=== PATIENT | female | born 1950 | race Caucasian/White ===

== ENCOUNTER → 2019-08-10 15:10 | Outpatient (BNVA) | payer MEDICARE, MEDICAID, SELFPAY | PROVIDERS: PCP Family Medicine; Visit Provider Nurse Practitioner Family | DX: J18.9 Pneumonia, unspecified organism (principal); R05 Cough; I70.0 Atherosclerosis of aorta; Q25.46 Tortuous aortic arch | CPT/HCPCS: 71046; 85025 ==

== ENCOUNTER → 2019-11-22 13:23 | Outpatient (BNVA) | payer MEDICARE, MEDICAID, SELFPAY | PROVIDERS: PCP Nurse Practitioner Family; Visit Provider Nurse Practitioner Family | DX: N39.0 Urinary tract infection, site not specified (principal) | CPT/HCPCS: 80053; 81003; 87077; 87086; 87186 ==

== ENCOUNTER → 2019-11-29 14:36 | Outpatient (BNVA) | payer MEDICARE, MEDICAID, SELFPAY | PROVIDERS: PCP Nurse Practitioner Family; Visit Provider Nurse Practitioner Family | DX: N39.0 Urinary tract infection, site not specified (principal) | CPT/HCPCS: 81003 ==

== ENCOUNTER → 2019-12-06 13:07 | Outpatient (BNVA) | payer MEDICARE, MEDICAID, SELFPAY | PROVIDERS: PCP Nurse Practitioner Family; Visit Provider Nurse Practitioner Family | DX: M79.641 Pain in right hand (principal); M79.642 Pain in left hand; M85.842 Other specified disorders of bone density and structure, left hand; M85.841 Other specified disorders of bone density and structure, right hand; E55.9 Vitamin D deficiency, unspecified; R94.6 Abnormal results of thyroid function studies; D56.5 Hemoglobin E-beta thalassemia; E11.9 Type 2 diabetes mellitus without complications; N39.0 Urinary tract infection, site not specified; E78.2 Mixed hyperlipidemia | CPT/HCPCS: 73130; 80053; 80061; 81003; 82306; 83036; 84443; 84550; 85025; 85651; 86140; 86431 ==

== ENCOUNTER → 2019-12-26 07:35 | Outpatient (BNVA) | payer MEDICARE, MEDICAID, SELFPAY | PROVIDERS: PCP Nurse Practitioner Family; Visit Provider Psychiatry & Neurology Psychiatry | DX: F33.42 Major depressive disorder, recurrent, in full remission (principal); G24.01 Drug induced subacute dyskinesia | CPT/HCPCS: 99213 ==

== ENCOUNTER → 2020-04-17 15:39 | Outpatient (BNVA) | payer MEDICARE, MEDICAID, SELFPAY | PROVIDERS: PCP Nurse Practitioner Family; Visit Provider Nurse Practitioner Family | DX: I10 Essential (primary) hypertension (principal); E11.9 Type 2 diabetes mellitus without complications; M10.9 Gout, unspecified; E55.9 Vitamin D deficiency, unspecified | CPT/HCPCS: 80053; 80061; 82306; 82607; 83036; 83735; 84550; 85025 ==

== ENCOUNTER → 2020-05-24 13:16 | Outpatient (BNVA) | payer MEDICARE, MEDICAID, SELFPAY | PROVIDERS: PCP Nurse Practitioner Family; Visit Provider Internal Medicine Nephrology | DX: N18.30 Chronic kidney disease, stage 3 unspecified (principal) | CPT/HCPCS: 80053; 80069; 81003; 82043; 87077; 87086; 87184 ==

== ENCOUNTER → 2020-06-20 08:16 | Outpatient (BNVA) | payer MEDICARE, MEDICAID, SELFPAY | PROVIDERS: PCP Nurse Practitioner Family; Visit Provider Psychiatry & Neurology Psychiatry | DX: F33.42 Major depressive disorder, recurrent, in full remission (principal); G24.01 Drug induced subacute dyskinesia | CPT/HCPCS: 99213 ==

== ENCOUNTER → 2020-12-18 07:37 | Outpatient (BNVA) | payer MEDICARE, MEDICAID, SELFPAY | PROVIDERS: PCP Nurse Practitioner Family; Visit Provider Psychiatry & Neurology Psychiatry | DX: F33.42 Major depressive disorder, recurrent, in full remission (principal); G24.01 Drug induced subacute dyskinesia | CPT/HCPCS: 99213 ==

== ENCOUNTER → 2021-04-08 17:46 | Outpatient (BNVA) | payer MEDICARE, MEDICAID, SELFPAY | PROVIDERS: PCP Nurse Practitioner Family; Visit Provider Nurse Practitioner Family | DX: E11.9 Type 2 diabetes mellitus without complications (principal); E55.9 Vitamin D deficiency, unspecified; I10 Essential (primary) hypertension; M79.641 Pain in right hand; M79.642 Pain in left hand; M10.9 Gout, unspecified; J44.9 Chronic obstructive pulmonary disease, unspecified | CPT/HCPCS: 80053; 80061; 82043; 82306; 82607; 83036; 84443; 84550; 85025; 85651; 86038; 86140; 86200; 86431 ==

== ENCOUNTER → 2021-05-28 07:34 | Outpatient (BNVA) | payer MEDICARE, MEDICAID, SELFPAY | PROVIDERS: PCP Nurse Practitioner Family; Visit Provider Psychiatry & Neurology Psychiatry | DX: F33.42 Major depressive disorder, recurrent, in full remission (principal); G24.01 Drug induced subacute dyskinesia | CPT/HCPCS: 99213 ==

== ENCOUNTER → 2021-06-24 13:17 | Outpatient (BNVA) | payer MEDICARE, MEDICAID, SELFPAY | PROVIDERS: PCP Nurse Practitioner Family; Visit Provider Nurse Practitioner Family | DX: E11.9 Type 2 diabetes mellitus without complications (principal); E55.9 Vitamin D deficiency, unspecified; M10.9 Gout, unspecified; Z23 Encounter for immunization | CPT/HCPCS: 80053; 80061; 82306; 83036; 84443; 84550; 85025 ==

== ENCOUNTER → 2021-10-28 11:47 | Outpatient (BNVA) | payer MEDICARE, MEDICAID, SELFPAY | PROVIDERS: PCP Nurse Practitioner Family; Visit Provider Nurse Practitioner Family | DX: M25.562 Pain in left knee (principal); M17.12 Unilateral primary osteoarthritis, left knee; E11.9 Type 2 diabetes mellitus without complications; E55.9 Vitamin D deficiency, unspecified; G25.81 Restless legs syndrome; M10.9 Gout, unspecified | CPT/HCPCS: 73562; 80053; 80061; 82306; 82607; 83036; 83735; 84443; 84550; 85025 ==

== ENCOUNTER → 2021-11-07 14:14 | Outpatient (BNVA) | payer MEDICARE, MEDICAID, SELFPAY | PROVIDERS: PCP Nurse Practitioner Family; Visit Provider Nurse Practitioner Family | DX: M25.561 Pain in right knee (principal) | CPT/HCPCS: 73562 ==

== ENCOUNTER → 2021-12-01 11:41 | Outpatient (BNVA) | payer MEDICARE, MEDICAID, SELFPAY | PROVIDERS: PCP Nurse Practitioner Family; Visit Provider Nurse Practitioner Family | DX: M10.9 Gout, unspecified (principal) | CPT/HCPCS: 80048; 84550 ==

== ENCOUNTER → 2021-12-10 09:45 | Outpatient (BNVA) | payer MEDICARE, MEDICAID, SELFPAY | PROVIDERS: PCP Nurse Practitioner Family; Referring Provider Nurse Practitioner Family; Visit Provider Specialist | DX: M17.11 Unilateral primary osteoarthritis, right knee (principal); M17.12 Unilateral primary osteoarthritis, left knee; E66.9 Obesity, unspecified; M25.562 Pain in left knee; M25.561 Pain in right knee | CPT/HCPCS: 73560; 73565; 99204; J7326 ==

== ENCOUNTER → 2022-02-05 14:47 | Outpatient (BNVA) | payer MEDICARE, MEDICAID, SELFPAY | PROVIDERS: PCP Nurse Practitioner Family; Visit Provider Nurse Practitioner Family | DX: M25.572 Pain in left ankle and joints of left foot (principal); M25.472 Effusion, left ankle | CPT/HCPCS: 73610 ==

== ENCOUNTER → 2022-03-26 11:52 | Outpatient (BNVA) | payer MEDICARE, MEDICAID, SELFPAY | PROVIDERS: PCP Nurse Practitioner Family; Visit Provider Nurse Practitioner Family | DX: E11.9 Type 2 diabetes mellitus without complications (principal); E55.9 Vitamin D deficiency, unspecified | CPT/HCPCS: 80053; 80061; 82306; 83036; 84443; 85025 ==

== ENCOUNTER → 2022-05-15 14:42 | Outpatient (BNVA) | payer MEDICARE, MEDICAID, SELFPAY | PROVIDERS: PCP Nurse Practitioner Family; Visit Provider Nurse Practitioner Family | DX: D72.819 Decreased white blood cell count, unspecified (principal) | CPT/HCPCS: 85025 ==

== ENCOUNTER → 2022-07-10 11:07 | Outpatient (BNVA) | payer MEDICARE, MEDICAID, SELFPAY | PROVIDERS: PCP Nurse Practitioner Family; Visit Provider Student in an Organized Health Care Education/Training Program | DX: Z01.818 Encounter for other preprocedural examination (principal) | CPT/HCPCS: 80048 ==

== ENCOUNTER → 2022-10-30 11:42 | Outpatient (BNVA) | payer MEDICARE, MEDICAID, SELFPAY | PROVIDERS: PCP Nurse Practitioner Family; Visit Provider Nurse Practitioner Family | DX: I10 Essential (primary) hypertension (principal); E11.9 Type 2 diabetes mellitus without complications; E55.9 Vitamin D deficiency, unspecified | CPT/HCPCS: 80053; 80061; 82306; 83036; 84443; 85025 ==

== ENCOUNTER 2022-12-31 19:18 | Emergency (ER) | payer MEDICARE, MEDICAID, SELFPAY ==
[2022-12-31 19:31] VITALS: BP 159/84; PULSE 109; RESP 18; TEMP 38.5; O2SAT 94; BMI 37.4
[2022-12-31] MEDS: acetaminophen 500 mg Tablet 1000 MG PO (20:26)
[2022-12-31 20:27] VITALS: BP 152/95; PULSE 99; O2SAT 92
--- NOTE | 2022-12-31 20:29 | ED_ITS ---
HPI - Headache General: Chief Complaint: Headache Stated Complaint: Head Pain, Dizzy Time Seen by Provider: 12/31/22 19:24 History of Present Illness: Patient presents to the ER with complaints of headache. Also fever. Patient says she may have a UTI because she has been noticing bubbles in her urine. Patient is under a lot more stress than normal. They stated may have put her little dog down. All these have been going on for about the last 2 months. Nothing seems to make these better or worse. Patient does have a temperature of 101.3 upon arrival and has not taken anything for fever. Review of Systems General: Reports: 10 or more systems reviewed and unremarkable except in HPI and below PFSH ED PFSH: Medical History Bilateral hearing loss Bilateral primary osteoarthritis of knee Chronic kidney disease, stage 3 (moderate) COPD (chronic obstructive pulmonary disease) Dyskinesia, tardive Encounter for counseling for care management of patient with chronic conditions and complex health needs using nurse-based model Enrolled in chronic care management Essential (primary) hypertension Major depressive disorder, recurrent, in full remission Mixed hyperlipidemia Seasonal allergies Steatohepatitis Type 2 diabetes mellitus without complications Vitamin D deficiency Surgical History History of tonsillectomy and adenoidectomy (~1955) Hx of external ear surgery (~1967) Family History Father CAD (coronary artery disease) Mother Cancer Psychiatric illness Bipolar Disorder Social History Smoking and tobacco status: never smoked Alcohol intake: never Substance/Drug Use: never Lives independently: Yes Household members: none Housing: Apartment Marital status: Single Current occupational status: retired Current gender identity: Female Physical Exam Const: COMMON NORMALS: no acute distress, average body habitus, patient oriented x3, no limitations, healthy appearing, alert and well nourished HENMT: COMMON NORMALS: normocephalic, atraumatic, hearing grossly normal bilaterally, external ears normal, Normal external nose present and moist oral mucous membranes HEAD & SCALP: normocephalic and atraumatic NOSE: Normal external nose present EXTERNAL EAR: Yes external ears normal Eye: COMMON NORMALS: Equal, round and reactive pupils present, EOMs intact bilaterally, conjunctivae normal and no scleral icterus CONJUNCTIVA: Yes conjunctivae normal PUPIL: Yes Equal, round and reactive pupils present Neck/C-Spine: COMMON NORMALS: full ROM, no lymphadenopathy, supple, no meningeal signs, no JVD and Thyroid normal THYROID: Thyroid normal Chest: COMMONS NORMALS: normal inspection of the chest and normal palpation of entire chest wall Resp: COMMON NORMALS: normal respiratory effort, No retractions, No use of accessory muscles and clear to auscultation bilaterally AUSCULTATION: clear to auscultation bilaterally Cardio: COMMON NORMALS: no JVD, regular rate, regular rhythm, S1 normal heart sound present, S2 normal heart sound present, No gallops present (Cardio), No clicks present (Cardio), No murmurs present (Cardio) and No rub (Cardio) RATE: regular rate RHYTHM: regular rhythm HEART SOUNDS: S1 normal heart sound present and S2 normal heart sound present GI: COMMON NORMALS: Normal to inspection, nondistended, normoactive bowel sounds present, Soft to palpation, non-tender, No hepatosplenomegaly present and no masses PALPATION: Yes Soft to palpation and Yes No hepatosplenomegaly present : COMMON NORMALS: Yes no CVA tenderness BLADDER/KIDNEY EXAM: Yes no CVA tenderness Back/Pelvis: COMMON NORMALS: no CVA tenderness Neuro: COMMON NORMALS: patient oriented x3 SENSORIUM/ORIENTATION: Yes alert MENINGEAL SIGNS: Yes no meningeal signs Course Vital Signs: Vital signs: Vital Signs Temperature 101.3 F H 12/31/22 19:31 Pulse Rate 99 12/31/22 20:27 Respiratory Rate 18 12/31/22 19:31 Blood Pressure 152/95 12/31/22 20:27 Pulse Oximetry 92 12/31/22 20:27 Oxygen Delivery Me thod Room Air 12/31/22 20:27 MDM - Headache Medical Decision Making Patient was examined lab work was up patient has a urinary tract infection. This would explain the patient's fever and tachycardia. Patient's under a lot more stress than normal which would explain her headache. Patient will be given Macrobid here in ER as she says she cannot take Cipro and is allergic to sulfa. Patient be discharged with a Macrobid prescription to follow-up with her family practice doc on an as-needed basis. Patient is to take Tylenol as needed for fever. Differential Diagnosis Likely tension headache; Unlikely migraine, subarachnoid hemorrhage, headache, meningitis, sinusitis or postconcussion syndrome Medical Records I reviewed the patient's medical records. Lab Data I reviewed the patient's lab results. Laboratory Results Urine Color Yellow (Yellow) 12/31/22 20:38 Urine Appearance Clear (CLEAR) 12/31/22 20:38 Urine pH 5 (5-7) 12/31/22 20:38 Ur Specific [place] 1.010 (1.005-1.030) 12/31/22 20:38 Urine Protein Neg (Negative) 12/31/22 20:38 Urine Glucose (UA) Norm (Normal) 12/31/22 20:38 Urine Ketones Negative (Negative) 12/31/22 20:38 Urine Blood Trace (Negative) H 12/31/22 20:38 Urine Nitrate Positive (Negative) H 12/31/22 20:38 Urine Bilirubin Neg (Negative) 12/31/22 20:38 Urine Urobilinogen Norm mg/dL (Negative) 12/31/22 20:38 Ur Leukocyte Esterase Negative (Negative) 12/31/22 20:38 Urine RBC 0-4 /hpf (0-2) H 12/31/22 20:38 Urine WBC 5-10 /hpf (0-5) H 12/31/22 20:38 Ur Squamous Epith Cells 0-4 /hpf (0-5) H 12/31/22 20:38 Amorphous Sediment Not Reportable 12/31/22 20:38 Urine Bacteria 4+ /hpf (NONE) H 12/31/22 20:38 Discharge Plan Discharge Patient Disposition: Home Clinical Impression: Headache Qualifiers: Headache type: tension-type Headache chronicity pattern: acute headache Intractability: not intractable Qualified Code(s): G44.209 - Tension-type headache, unspecified, not intractable Urinary tract infection Qualifiers: Urinary tract infection type: acute cystitis Hematuria presence: with hematuria Qualified Code(s): N30.01 - Acute cystitis with hematuria Condition: Stable Prescriptions: New Macrobid 100 mg capsule 100 mg PO BID 7 Days Qty: 14 0RF Rx Instructions: must administer with a meal/food No Action Spiriva Respimat 2.5 mcg/actuation mist 2 puff inhalation QAM Qty: 4 5RF fluticasone propionate 50 mcg/actuation spray,suspension 2 spray INTRANASAL DAILY Qty: 16 5RF potassium 99 mg tablet 99 mg PO DAILY multivitamin [Daily Multi-Vitamin] Tablet 1 tab PO QAM aspirin 81 mg tablet,delayed release (DR/EC) 81 mg PO ONCE ferrous sulfate 27 mg iron tablet 27 mg PO DAILY cetirizine 10 mg tablet 10 mg PO DAILY PRN albuterol sulfate [Ventolin HFA] 90 mcg/actuation HFA aerosol inhaler See Rx Instructions .ROUTE .COMPLEX Qty: 18 5RF Dose Instruction: inhale TWO puffs BY MOUTH EVERY 6 HOURS NEEDED FOR SHORTNESS OF BREATH OR wheezing Rx Instructions: inhale TWO puffs BY MOUTH EVERY 6 HOURS NEEDED FOR SHORTNESS OF BREATH OR wheezing amoxicillin 875 mg tablet 875 mg PO BID 10 Days Qty: 20 0RF quetiapine 400 mg tablet See Rx Instructions .ROUTE .COMPLEX Qty: 90 3RF Dose Instruction: TAKE ONE TABLET BY MOUTH At Bedtime Rx Instructions: TAKE ONE TABLET BY MOUTH At Bedtime venlafaxine 150 mg capsule,extended release 24hr See Rx Instructions .ROUTE .COMPLEX Qty: 90 3RF Dose Instruction: TAKE ONE CAPSULE BY MOUTH EVERY DAY Rx Instructions: TAKE ONE CAPSULE BY MOUTH EVERY DAY metoprolol succinate 50 mg tablet extended release 24 hr See Rx Instructions .ROUTE .COMPLEX Qty: 90 1RF Dose Instruction: TAKE ONE TABLET BY MOUTH EVERY DAY Rx Instructions: TAKE ONE TABLET BY MOUTH EVERY DAY atorvastatin 80 mg tablet See Rx Instructions .ROUTE .COMPLEX Qty: 90 1RF Dose Instruction: TAKE ONE TABLET BY MOUTH EVERY DAY Rx Instructions: TAKE ONE TABLET BY MOUTH EVERY DAY metoprolol succinate 100 mg tablet extended release 24 hr See Rx Instructions .ROUTE .COMPLEX Qty: 90 1RF Dose Instruction: TAKE ONE TABLET BY MOUTH DAILY with 50mg to equal 150mg DAILY Rx Instructions: TAKE ONE TABLET BY MOUTH DAILY with 50mg to equal 150mg DAILY Discharge Orders: Discharge ED (Routine); Ordered 12/31/22 Ordered By: Vic Thrasher Referrals: Saira Charles FNP [Primary Care Provider] - 1 week Patient Instructions: Acute Headache (ED), Urinary Tract Infection - Women Activity Restrictions/Additional Instructions: Please take all your antibiotics as prescribed. Please take [id number] Tylenol as directed as needed for fever. Please push plenty of water please follow-up with your family practice doctor in the next 1 week Coding Level of Care Code ED Quality Control Expert for Micaela Martinez
[2022-12-31 20:50] LABS: Add Urine Culture? Yes; Add Urine Microscopic? YES; Bacteria Urine 4+ /hpf; Bilirubin Urine Neg (Negative); Blood Urine Trace (Negative); Glucose Urine UA Norm (Normal); Ketones Urine Negative (Negative); Leukocyte Esterase Urine Negative (Negative); Nitrate Urine Positive (Negative); Protein Urine Neg (Negative); RBC Urine 0-4 /hpf (0-2); Squamous Epithelial Cell Urine 0-4 /hpf (0-5); Urine Appearance Clear (CLEAR); Urine Color Yellow (Yellow); Urobilinogen Urine Norm (Negative); pH Urine 5 (5-7)
[2022-12-31] MEDS: nitrofurantoin SR (BID) 100 mg Capsule PO (21:06)
[2022-12-31 21:11] VITALS: BP 132/69; PULSE 104; O2SAT 92
== END 2022-12-31 21:13 | disposition home or self-care (01) ==
PROVIDERS: Emergency Provider Emergency Medicine; PCP Nurse Practitioner Family
DX: G44.209 Tension-type headache, unspecified, not intractable (principal); N30.01 Acute cystitis with hematuria; I13.0 Hypertensive heart and chronic kidney disease with heart failure and stage 1 through stage 4 chronic kidney disease, or unspecified chronic kidney disease; E11.22 Type 2 diabetes mellitus with diabetic chronic kidney disease; N18.30 Chronic kidney disease, stage 3 unspecified; I50.9 Heart failure, unspecified; J44.9 Chronic obstructive pulmonary disease, unspecified; E78.2 Mixed hyperlipidemia
CPT/HCPCS: 81001; 87077; 87086; 87186; 99283

== ENCOUNTER → 2023-01-20 14:30 | Outpatient (BNVA) | payer MEDICARE, MEDICAID, SELFPAY | PROVIDERS: PCP Nurse Practitioner Family; Visit Provider Nurse Practitioner Family | DX: E55.9 Vitamin D deficiency, unspecified (principal); E11.9 Type 2 diabetes mellitus without complications | CPT/HCPCS: 80053; 80061; 81003; 82306; 83036; 85025; 87077; 87086; 87184 ==

== ENCOUNTER → 2023-05-05 15:33 | Outpatient (BNVA) | payer MEDICARE, MEDICAID, SELFPAY | PROVIDERS: PCP Nurse Practitioner Family; Visit Provider Nurse Practitioner Family | DX: E55.9 Vitamin D deficiency, unspecified (principal); I10 Essential (primary) hypertension; E11.9 Type 2 diabetes mellitus without complications; M25.50 Pain in unspecified joint; M10.9 Gout, unspecified | CPT/HCPCS: 80053; 80061; 82306; 82607; 83036; 84443; 84550; 85025; 85651; 86038; 86140; 86431 ==

== ENCOUNTER 2023-05-25 01:47 | Emergency (ER) | payer MEDICARE, MEDICAID, SELFPAY ==
[2023-05-25 01:54] VITALS: BP 89/59; PULSE 112; RESP 25; TEMP 37; O2SAT 97; BMI 37.0
--- NOTE | 2023-05-25 01:57 | ECG_ITS ---
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 Measurements Intervals [place] Rate: 102 P: 0 PA: 0 QRS: -28 QRSD: 94 T: 102 QT: 335 QTc: 438 Interpretive Statements Possible multifocal atrial tachycardia BORDERLINE LEFT AXIS DEVIATION [QRS AXIS < -20] LEFT VENTRICULAR HYPERTROPHY AND ST-T CHANGE [VOLTAGE CRITERIA PLUS ST/T ABNORMALITY] Compared to ECG 05/04/2019 15:25:11 Left ventricular hypertrophy now present ST (T wave) deviation now present Baseline artifact present. Repeat study is recommended Electronically Signed On 05-25-2023 23:24:42 WET MACHINE OPERATOR by Brandi Brenner M.D. [id number]
--- NOTE | 2023-05-25 01:58 | XRR_ITS ---
PROCEDURE INFORMATION: Exam: XR Chest Exam date and time: 05/25/2023 2:02 AM Age: 72 years old Clinical indication: Shortness of breath; Additional info: SOB TECHNIQUE: Imaging protocol: Radiologic exam of the chest. Views: 1 view. COMPARISON: CR XR chest 2V* [id number] 08/10/2019 3:21 PM FINDINGS: Lungs: Unremarkable. No consolidation. Pleural spaces: Unremarkable. No pleural effusion. No pneumothorax. Heart/Mediastinum: Unremarkable. No cardiomegaly. Diaphragm: The right hemidiaphragm is again noted to be elevated. Bones/joints: The bones are osteopenic with degenerative change. XR/XR chest 1V portable [id number] IMPRESSION: Elevated right hemidiaphragm.
[2023-05-25 02:08] LABS: Basophils # 0.1 10^3/uL (0.0-0.1); Basophils % 0.6 %; Eosinophils % 0.2 %; Hematocrit 42.3 % (36-47); Lymphocytes # 3.3 10^3/uL (0.8-4.8); Lymphocytes % 36.8 %; Mean Corpuscular HGB Conc 32.6 g/dL (30-55); Mean Corpuscular Hemoglobin 29.9 pg (27-33); Mean Corpuscular Volume 91.6 fl (85-98); Mean Platelet Volume 11.1 fL (7.4-10.4); Monocytes # 0.6 10^3/uL (0.2-0.9); Monocytes % 6.5 %; Neutrophils # 4.93 10^3/uL (1.8-7.7); Neutrophils % 55.2 %; Nucleated Red Blood Cells % 0 %; Platelet Count 218 10^3/cmm (157-399); Red Blood Count 4.62 10^6/uL (3.85-5.65); Red Cell Distribution Width 13.1 % (12.1-15.1); White Blood Count 8.92 10^3/uL (3.29-11.43)
[2023-05-25 02:09] VITALS: PULSE 110; RESP 30; O2SAT 97
--- NOTE | 2023-05-25 02:13 | ED_ITS ---
HPI - SOB/Dyspnea General: Chief Complaint: Shortness of Breath/Dyspnea Stated Complaint: sob Time Seen by Provider: 05/25/23 01:53 Source: patient Mode of arrival: ambulatory Limitations: no limitations History of Present Illness: HPI Narrative: 72-year-old female who has a history of COPD states she is diagnosed with bronchitis since currently on steroids and states that she has had increasing productive cough along with wheezing and shortness of breath. She does appear quite anxious here she denies any chest pain denies any fevers states she has been doing her breathing treatments as well with minimal relief. Associated symptoms: Deny abdominal pain, chest pain, fever(s), nausea or vomiting Review of Systems Const: Denies: fever(s), chills, body aches or change in appetite Eyes: Denies: blurry vision or eye discomfort ENMT: Denies: throat pain or dental pain Card: Denies: chest pain Resp: Reports: dyspnea and productive cough GI: Denies: abdominal pain, nausea, vomiting or diarrhea : Denies: dysuria Musc: Denies: neck pain or back pain Skin/Breast: Denies: rash Neuro: Denies: headache(s) PFSH ED PFSH: Medical History Bilateral hearing loss Bilateral primary osteoarthritis of knee Chronic kidney disease, stage 3 (moderate) COPD (chronic obstructive pulmonary disease) Dyskinesia, tardive Encounter for counseling for care management of patient with chronic conditions and complex health needs using nurse-based model Enrolled in chronic care management Essential (primary) hypertension Major depressive disorder, recurrent, in full remission Mixed hyperlipidemia Seasonal allergies Steatohepatitis Type 2 diabetes mellitus without complications Vitamin D deficiency Surgical History History of tonsillectomy and adenoidectomy (~1955) Hx of external ear surgery (~1967) Family History Father CAD (coronary artery disease) Mother Cancer Psychiatric illness Bipolar Disorder Social History Smoking and tobacco/nicotine status: never used tobacco/nicotine Alcohol intake: never Substance/Drug Use: never Lives independently: Yes Household members: none Housing: Apartment Marital status: Single Current occupational status: retired Current gender identity: Female Physical Exam Const: COMMON NORMALS: patient oriented x3 HENMT: COMMON NORMALS: normocephalic and atraumatic HEAD & SCALP: normocephalic and atraumatic Eye: COMMON NORMALS: Equal, round and reactive pupils present and EOMs intact bilaterally PUPIL: Yes Equal, round and reactive pupils present Neck/C-Spine: COMMON NORMALS: full ROM and supple Chest: COMMONS NORMALS: normal inspection of the chest and normal palpation of entire chest wall Resp: COMMON NORMALS: No retractions and No use of accessory muscles EFFORT & INSPECTION: Yes tachypneic AUSCULTATION: wheezes Cardio: COMMON NORMALS: regular rhythm and No murmurs present (Cardio) RATE: tachycardic RHYTHM: regular rhythm GI: COMMON NORMALS: Normal to inspection, nondistended, normoactive bowel sounds present, Soft to palpation, non-tender and no masses PALPATION: Yes Soft to palpation Extremity: COMMON NORMALS: normal to inspection and full ROM Neuro: COMMON NORMALS: patient oriented x3, moves all extremities and no focal motor deficits Psych: COMMON NORMALS: mental status grossly normal, Normal thought process present and cooperative THOUGHT PROCESS: Normal thought process present Skin: COMMON NORMALS: no rashes or lesions noted and no wounds GENERAL SKIN EXAM: no rashes or lesions noted Course Vital Signs: Vital signs: Vital Signs Temperature 98.6 F 05/25/23 01:54 Pulse Rate 103 H 05/25/23 02:25 Respiratory Rate 20 H 05/25/23 02:14 Blood Pressure 89/59 05/25/23 01:54 Pulse Oximetry 97 05/25/23 02:14 Oxygen Delivery Me thod Room Air 05/25/23 02:14 MDM - SOB/Dyspnea Medical Decision Making Patient presents here with COPD along with bronchitis she feels much improved here after breathing treatment she has had no hypoxia white counts normal no signs of a large pneumonia we will start on doxycycline water follow-up with PCP and return if worsening she understands agrees to plan. Medical Records I reviewed the patient's medical records. Lab Data I reviewed the patient's lab results. 05/25/23 02:03 05/25/23 02:03 Labs/Radiology: Radiology Impressions Chest X-Ray 05/25/23 01:58 IMPRESSION: Elevated right hemidiaphragm. Laboratory Results WBC 8.92 10^3/uL (3.29-11.43) 05/25/23 02:03 RBC 4.62 10^6/uL (3.85-5.65) 05/25/23 02:03 Hgb 13.80 g/dL (11.27-16.99) 05/25/23 02:03 Hct 42.3 % (36-47) 05/25/23 02:03 MCV 91.6 fl (85-98) 05/25/23 02:03 MCH 29.9 pg (27-33) 05/25/23 02:03 MCHC 32.6 g/dL (30-55) 05/25/23 02:03 RDW 13.1 % (12.1-15.1) 05/25/23 02:03 Plt Count 218 10^3/cmm (157-399) 05/25/23 02:03 MPV 11.1 fL (7.4-10.4) H 05/25/23 02:03 Neut % (Auto) 55.2 % 05/25/23 02:03 Lymph % (Auto) 36.8 % 05/25/23 02:03 [place] % (Auto) 6.5 % 05/25/23 02:03 Eos % (Auto) 0.2 % 05/25/23 02:03 Baso % (Auto) 0.6 % 05/25/23 02:03 Neut # (Auto) 4.93 10^3/uL (1.8-7.7) 05/25/23 02:03 Lymph # (Auto) 3.3 10^3/uL (0.8-4.8) 05/25/23 02:03 [place] # (Auto) 0.6 10^3/uL (0.2-0.9) 05/25/23 02:03 Eos # (Auto) 0.0 10^3/uL (0.0-0.8) 05/25/23 02:03 Baso # (Auto) 0.1 10^3/uL (0.0-0.1) 05/25/23 02:03 Nucleated RBC % (auto) 0 % 05/25/23 02:03 Nucleated RBCs # 0.0 /100WBC 05/25/23 02:03 Sodium 141 mmol/L (136-145) 05/25/23 02:03 Potassium 4.3 mmol/L (3.5-5.1) 05/25/23 02:03 Chloride 103 mmol/L (98-107) 05/25/23 02:03 Carbon Dioxide 25 mmol/L (22-29) 05/25/23 02:03 Anion Gap 17.3 (5-19) 05/25/23 02:03 BUN 26 mg/dL (8-23) H 05/25/23 02:03 Creatinine 1.3 mg/dL (0.5-0.9) H 05/25/23 02:03 GFR Calculation Not Reportable 05/25/23 02:03 Glucose 186 mg/dL (65-115) H 05/25/23 02:03 Calculated Osmolality 302 mOsm/kg (285-295) H 05/25/23 02:03 Lactic Acid 2.4 mmol/L (0.5-2.2) H 05/25/23 02:13 Calcium 9.2 mg/dL (8.5-10.5) 05/25/23 02:03 Total Bilirubin 0.3 mg/dL (0.15-1.2) 05/25/23 02:03 AST 32 U/L (0-32) 05/25/23 02:03 ALT 47 U/L (0-33) H 05/25/23 02:03 Alkaline Phosphatase 135 U/L (35-105) H 05/25/23 02:03 NT-Pro-B Natriuret Pep 366 pg/mL (0-125) H 05/25/23 02:03 Total Protein 6.9 g/dL (6.6-8.7) 05/25/23 02:03 Albumin 4.1 g/dL (3.5-5.2) 05/25/23 02:03 Globulin 2.8 g/dL (1.3-4.6) 05/25/23 02:03 Influenza Type A Ag negative (Negative) 05/25/23 02:22 Influenza Type B Ag negative (Negative) 05/25/23 02:22 SARS-CoV-2 RNA (RT-PCR) Cancelled 05/25/23 02:22 SARS-CoV-2 Ag (Rapid) Negative (Negative) 05/25/23 02:22 All radiology interpretation(s) finalized by discharge Discharge Plan Discharge Patient Disposition: Home Clinical Impression: Acute bronchitis Condition: Stable Prescriptions: New doxycycline hyclate 100 mg tablet 100 mg PO BID 7 Days Qty: 14 0RF No Action fluticasone propionate 50 mcg/actuation spray,suspension 2 spray INTRANASAL DAILY Qty: 16 5RF potassium 99 mg tablet 99 mg PO DAILY multivitamin [Daily Multi-Vitamin] Tablet 1 tab PO QAM aspirin 81 mg tablet,delayed release (DR/EC) 81 mg PO ONCE ferrous sulfate 27 mg iron tablet 27 mg PO DAILY cetirizine 10 mg tablet 10 mg PO DAILY PRN metoprolol succinate 100 mg tablet extended release 24 hr See Rx Instructions .ROUTE .COMPLEX Qty: 90 1RF Dose Instruction: TAKE ONE TABLET BY MOUTH DAILY with 50mg to equal 150mg DAILY Rx Instructions: TAKE ONE TABLET BY MOUTH DAILY with 50mg to equal 150mg DAILY metoprolol succinate 50 mg tablet extended release 24 hr See Rx Instructions .ROUTE .COMPLEX Qty: 90 1RF Dose Instruction: TAKE ONE TABLET BY MOUTH EVERY DAY Rx Instructions: TAKE ONE TABLET BY MOUTH EVERY DAY atorvastatin 80 mg tablet See Rx Instructions .ROUTE .COMPLEX Qty: 90 1RF Dose Instruction: TAKE ONE TABLET BY MOUTH EVERY DAY Rx Instructions: TAKE ONE TABLET BY MOUTH EVERY DAY albuterol sulfate [Ventolin HFA] 90 mcg/actuation HFA aerosol inhaler See Rx Instructions .ROUTE .COMPLEX Qty: 18 5RF Dose Instruction: inhale TWO puffs BY MOUTH EVERY 6 HOURS NEEDED FOR SHORTNESS OF BREATH OR wheezing Rx Instructions: inhale TWO puffs BY MOUTH EVERY 6 HOURS NEEDED FOR SHORTNESS OF BREATH OR wheezing amoxicillin 875 mg tablet 875 mg PO BID 10 Days Qty: 20 0RF prednisone 20 mg tablet 40 mg PO DAILY 5 Days Qty: 10 0RF quetiapine 400 mg tablet See Rx Instructions .ROUTE .COMPLEX Qty: 90 3RF Dose Instruction: TAKE ONE TABLET BY MOUTH At Bedtime Rx Instructions: TAKE ONE TABLET BY MOUTH At Bedtime venlafaxine 150 mg capsule,extended release 24hr See Rx Instructions .ROUTE .COMPLEX Qty: 90 3RF Dose Instruction: TAKE ONE CAPSULE BY MOUTH EVERY DAY Rx Instructions: TAKE ONE CAPSULE BY MOUTH EVERY DAY allopurinol 100 mg tablet 100 mg PO DAILY Qty: 30 0RF Rx Instructions: will need lab after 2 weeks Discharge Orders: Discharge ED (Routine); Ordered 05/25/23 Ordered By: Brian Luna Referrals: Saira Charles FNP [Primary Care Provider] - 1-3 days Discharge Diet: Advance as tolerated Discharge Activity: Resume usual activity Patient Instructions: Acute Bronchitis (ED) Coding Level of Care Code ED New Product Trainer for Micaela Martinez
[2023-05-25 02:14] VITALS: PULSE 105; RESP 20; O2SAT 97
[2023-05-25] MEDS: ipratropium-albuterol 3 mL Neb INHALATION (02:16)
[2023-05-25] MEDS: albuterol 2.5 mg/3 mL Neb INHALATION (02:22)
[2023-05-25] MEDS: sodium chloride 0.9% 1,000 ML 999 ML IV (02:23)
[2023-05-25 02:25] VITALS: PULSE 103
[2023-05-25 02:41] LABS: Influenza A by IFA negative (Negative); Influenza B by IFA negative (Negative)
[2023-05-25 02:41] LABS: Lactic Sepsis W/Reflex 2.4 mmol/L (0.5-2.2)
[2023-05-25 02:48] LABS: SARS Covid-2 Antigen Negative (Negative)
[2023-05-25 02:52] LABS: Alanine Aminotransferase 47 U/L (0-33); Albumin Level 4.1 g/dL (3.5-5.2); Alkaline Phosphatase 135 U/L (35-105); Anion Gap 17.3 (5-19); Aspartate Amino Transferase 32 U/L (0-32); Blood Urea Nitrogen 26 mg/dL (8-23); Calcium 9.2 mg/dL (8.5-10.5); Carbon Dioxide 25 mmol/L (22-29); Chloride 103 mmol/L (98-107); Globulin 2.8 g/dL (1.3-4.6); Glucose 186 mg/dL (65-115); Osmolality Calculated 302 mOsm/kg (285-295); Potassium 4.3 mmol/L (3.5-5.1); Sodium 141 mmol/L (136-145); Total Bilirubin 0.3 mg/dL (0.15-1.2); Total Protein 6.9 g/dL (6.6-8.7)
[2023-05-25 02:53] LABS: NT Pro B Type Natriuretic Pept 366 pg/mL (0-125)
[2023-05-25] MEDS: doxycycline 100 mg Tablet PO (03:30)
[2023-05-25 03:35] VITALS: BP 109/70; PULSE 97; RESP 14; O2SAT 98
[2023-05-25 04:02] LABS: Reflex Lactate Order REFLEX LACTIC ORDERD
== END 2023-05-25 03:37 | disposition home or self-care (01) ==
PROVIDERS: Emergency Provider Emergency Medicine; PCP Nurse Practitioner Family
DX: J44.0 Chronic obstructive pulmonary disease with (acute) lower respiratory infection (principal); J20.9 Acute bronchitis, unspecified; Z11.52 Encounter for screening for COVID-19; I12.9 Hypertensive chronic kidney disease with stage 1 through stage 4 chronic kidney disease, or unspecified chronic kidney disease; E11.22 Type 2 diabetes mellitus with diabetic chronic kidney disease; N18.30 Chronic kidney disease, stage 3 unspecified; E78.2 Mixed hyperlipidemia
CPT/HCPCS: 36415; 71045; 80053; 83605; 83880; 85025; 87426; 87804; 93005; 94640; 96360; 99284; J7030; J7613

== ENCOUNTER → 2023-10-07 11:46 | Outpatient (BNVA) | payer MEDICARE, MEDICAID, SELFPAY | PROVIDERS: PCP Nurse Practitioner Family; Visit Provider Nurse Practitioner Family | DX: R05.9 Cough, unspecified (principal); E11.9 Type 2 diabetes mellitus without complications; E55.9 Vitamin D deficiency, unspecified; M10.9 Gout, unspecified | CPT/HCPCS: 71046; 80053; 80061; 82306; 83036; 84443; 84550; 85025 ==

== ENCOUNTER → 2024-01-10 11:42 | Outpatient (BNVA) | payer MEDICARE, MEDICAID, SELFPAY | PROVIDERS: PCP Nurse Practitioner Family; Visit Provider Nurse Practitioner Family | DX: E55.9 Vitamin D deficiency, unspecified (principal); E11.9 Type 2 diabetes mellitus without complications | CPT/HCPCS: 80053; 80061; 82306; 82607; 83036; 84443; 85025 ==

== ENCOUNTER 2024-02-25 12:45 | Outpatient (CLI) | payer MEDICARE, MEDICAID, SELFPAY ==
--- NOTE | 2024-02-25 12:45 | US_ITS ---
WS: [id number] ULTRASOUND SOFT TISSUES RIGHT posterior lateral knee. HISTORY: M71.20 - Synovial cyst of popliteal space [Wang], unspec... COMPARISON: MRI 12/23/2016 TECHNIQUE: 2-D and color Doppler imaging is submitted. There is a complex cystic mass without increased vascularity in the posterior medial RIGHT knee measu ring 4.2 x 1.5 x 2.6 cm. This is most consistent with a Wang's cyst. Wang's cyst was also identifie d on the prior knee MRI from 12/23/2016. US/US soft tissue/extremity [id number] IMPRESSION: Moderate size Wang's cyst RIGHT knee. Also described on a prior MRI from 2016.
== END 2024-02-25 12:46 | disposition home or self-care (01) ==
PROVIDERS: PCP Nurse Practitioner Family; Visit Provider Nurse Practitioner Family
DX: M71.20 Synovial cyst of popliteal space [Baker], unspecified knee (principal)
CPT/HCPCS: 76882

== ENCOUNTER → 2024-06-02 13:59 | Outpatient (BNVA) | payer MEDICARE, MEDICAID, SELFPAY | PROVIDERS: PCP Nurse Practitioner Family; Visit Provider Nurse Practitioner Family | DX: M19.011 Primary osteoarthritis, right shoulder (principal); M25.511 Pain in right shoulder | CPT/HCPCS: 73030 ==

== ENCOUNTER → 2024-07-26 11:54 | Outpatient (BNVA) | payer MEDICARE, MEDICAID, SELFPAY | PROVIDERS: PCP Nurse Practitioner Family; Visit Provider Nurse Practitioner Family | DX: E11.9 Type 2 diabetes mellitus without complications (principal); N18.30 Chronic kidney disease, stage 3 unspecified | CPT/HCPCS: 80053; 80061; 82306; 83036; 84443; 85025 ==

== ENCOUNTER → 2024-09-06 14:42 | Outpatient (BNVA) | payer MEDICARE, MEDICAID, SELFPAY | PROVIDERS: PCP Nurse Practitioner Family; Visit Provider Podiatrist Foot & Ankle Surgery | DX: G62.9 Polyneuropathy, unspecified (principal); G57.83 Other specified mononeuropathies of bilateral lower limbs | CPT/HCPCS: 99203 ==

== ENCOUNTER → 2025-04-10 14:09 | Outpatient (BNVA) | payer MEDICARE, MEDICAID, SELFPAY | PROVIDERS: PCP Nurse Practitioner Family; Visit Provider Nurse Practitioner Family | DX: E11.9 Type 2 diabetes mellitus without complications (principal); N18.30 Chronic kidney disease, stage 3 unspecified | CPT/HCPCS: 80053; 80061; 82306; 82607; 83036; 84443; 85025 ==

== ENCOUNTER 2025-04-30 03:30 | Emergency (ER) | payer MEDICARE, MEDICAID, SELFPAY ==
--- NOTE | 2025-04-30 03:31 | XRR_ITS ---
PROCEDURE INFORMATION: Exam: XR Chest Exam date and time: 04/30/2025 3:31 AM Age: 74 years old Clinical indication: Chest pressure; C/O chest pain; Additional info: Cp TECHNIQUE: Imaging protocol: Radiologic exam of the chest. Views: 1 view. COMPARISON: CR XR chest 2V* [id number] 10/07/2023 11:54 AM FINDINGS: Lungs: Small right upper lobe calcified granuloma. Negative for airspace consolidation. Pleural spaces: Unremarkable. No pleural effusion. No pneumothorax. Heart/Mediastinum: Unremarkable. No cardiomegaly. Diaphragm: Right diaphragm elevation. Bones/joints: Unremarkable. XR/XR chest 1V portable [id number] IMPRESSION: Negative for acute chest pathology.
[2025-04-30 03:32] VITALS: BP 99/68; PULSE 95; RESP 16; TEMP 36.8; O2SAT 96; BMI 36.0
--- NOTE | 2025-04-30 03:37 | ECG_ITS ---
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 Measurements Intervals [place] Rate: 94 P: 198 AL: 110 QRS: -36 QRSD: 104 T: 98 QT: 324 QTc: 406 Interpretive Statements ECTOPIC ATRIAL RHYTHM WITH SHORT AL INTERVAL LEFT AXIS DEVIATION [QRS AXIS < -30] PATTERN CONSISTENT WITH PULMONARY DISEASE LEFT VENTRICULAR HYPERTROPHY AND ST-T CHANGE [VOLTAGE CRITERIA PLUS ST/T ABNORMALITY] Compared to ECG 05/25/2023 01:57:52 Ectopic atrial rhythm now present Short AL interval now present ST (T wave) deviation still present Electronically Signed On 05-01-2025 19:24:40 CDT by Brandi Brenner M.D. [email or web address] [id number]
--- NOTE | 2025-04-30 03:44 | CTR_ITS ---
PROCEDURE INFORMATION: Exam: CTA Chest With Contrast Exam date and time: 04/30/2025 4:01 AM Age: 74 years old Clinical indication: Other: Hypotension/tachycardia; Chest pressure; Chest pain with tachycardia and hypotension; Additional info: Cp TECHNIQUE: Imaging protocol: Computed tomographic angiography of the chest with contrast. Exam focused on the arteries. 3D rendering (Not supervised by radiologist): MIP and/or 3D reconstructed images were created by the technologist. Radiation optimization: All CT scans at this facility use at least one of these dose optimization techniques: automated exposure control; mA and/or kV adjustment per patient size (includes targeted exams where dose is matched to clinical indication); or iterative reconstruction. Contrast material: OMNI 350; Contrast volume: 58 ml; Contrast route: INTRAVENOUS (IV); COMPARISON: CR (CHEST, ) 04/30/2025 3:31 AM RADIATION DOSE METRICS: Total DLP (mGy-cm): 449.88 FINDINGS: Pulmonary arteries: Normal. No pulmonary emboli. Aorta: Unremarkable. No aortic aneurysm. No aortic dissection. Lungs: Unremarkable. No consolidation. No masses. Incidental calcified right upper lobe granuloma. Pleural spaces: Unremarkable. No pneumothorax. No pleural effusion. Heart: Unremarkable. No cardiomegaly. No pericardial effusion. Coronary arteries: Small volume coronary artery calcifications. Lymph nodes: Unremarkable. No enlarged lymph nodes. Diaphragm: Right diaphragm elevation. Gallbladder and biliary ducts: Cholecystectomy. Moderate common bile duct dilation. Bones/joints: Unremarkable. No acute fracture. Soft tissues: Unremarkable. CT/CT angio chest PE protcl [id number] IMPRESSION: Negative for acute chest pathology.
--- NOTE | 2025-04-30 03:47 | W.ED.CHESTPA ---
HPI - Chest Pain General: Chief Complaint: Chest Pain Stated Complaint: CHEST PAIN Time Seen by Provider: 04/30/25 03:31 Source: patient and EMS Mode of arrival: EMS Limitations: no limitations History of Present Illness: 74-year-old female states she has been having intermittent chest pain since 11 yesterday states she started having pain again an hour and a half ago pressure type pains to her chest some radiation to her back. Is relieved and route with nitro was given aspirin as well she denies any shortness of breath denies any fever. Related Data Home Medications ?Medication ?Instructions ?Recorded ?Confirmed aspirin 81 mg tablet,delayed 81 mg PO ONCE 07/20/19 04/17/25 release multivitamin (Daily Multi-Vitamin 1 tab PO QAM 07/20/19 04/17/25 tablet) potassium 99 mg tablet 99 mg PO DAILY 07/20/19 04/17/25 cetirizine 10 mg tablet 10 mg PO DAILY PRN 12/10/21 04/17/25 ferrous sulfate 27 mg iron tablet 27 mg PO DAILY 12/10/21 04/17/25 cholecalciferol (vitamin D3) 75 75 mcg PO DAILY 10/13/23 04/17/25 mcg (3,000 unit) tablet Previous Rx's ?Medication ?Instructions ?Recorded albuterol sulfate 90 mcg/actuation See Rx Instructions .Route 05/05/23 aerosol inhaler (Ventolin HFA) .COMPLEX #18 grams atorvastatin 80 mg tablet 80 mg PO DAILY #90 tabs 11/21/24 metoprolol succinate 100 mg See Rx Instructions .Route 11/21/24 tablet,extended release 24 hr .COMPLEX #90 tabs metoprolol succinate 50 mg See Rx Instructions .Route 11/21/24 tablet,extended release 24 hr .COMPLEX #90 tabs quetiapine 400 mg tablet See Rx Instructions .Route 11/21/24 .COMPLEX #90 tabs venlafaxine 150 mg See Rx Instructions .Route 11/21/24 capsule,extended release 24 hr .COMPLEX #90 caps Allergies Allergy/AdvReac Type Severity Reaction Status Date / Time lithium Allergy Intermediate ADR-Nausea Verified 04/30/25 03:34 Sulfa (Sulfonamide Allergy Intermediate ADR-Nausea Verified 04/30/25 03:34 Antibiotics) erythromycin base Allergy Unknown unknown Verified 04/30/25 03:34 doxycycline AdvReac ADR-Headach Verified 04/30/25 03:34 e Review of Systems Card: Reports: chest pain [facility] ED PFSH: Medical History (Updated 04/30/25 @ 05:01 by Brian Luna MD) Synovial cyst of popliteal space [Wang], right knee Bilateral foot pain Synovial cyst of knee COPD (chronic obstructive pulmonary disease) Seasonal allergies Steatohepatitis Bilateral hearing loss Bilateral primary osteoarthritis of knee Chronic kidney disease, stage 3 (moderate) Encounter for counseling for care management of patient with chronic conditions and complex health needs using nurse-based model Enrolled in chronic care management Dyskinesia, tardive Major depressive disorder, recurrent, in full remission Essential (primary) hypertension Vitamin D deficiency Mixed hyperlipidemia Type 2 diabetes mellitus without complications Surgical History History of tonsillectomy and adenoidectomy (~1954) Hx of external ear surgery (~1967) Family History Father CAD (coronary artery disease) Mother Cancer Psychiatric illness Bipolar Disorder Social History Smoking and tobacco/nicotine status: never used tobacco/nicotine Alcohol intake: never Substance/Drug Use: never Lives independently: Yes Household members: none Housing: Apartment Marital status: Single Current occupational status: retired Current gender identity: Female Physical Exam Const: COMMON NORMALS: no acute distress, patient oriented x3 and healthy appearing HENMT: COMMON NORMALS: normocephalic and atraumatic HEAD & SCALP: normocephalic and atraumatic Eye: COMMON NORMALS: conjunctivae normal CONJUNCTIVA: Yes conjunctivae normal Neck/C-Spine: COMMON NORMALS: full ROM and supple Chest: COMMONS NORMALS: normal inspection of the chest and normal palpation of entire chest wall Resp: COMMON NORMALS: normal respiratory effort, No retractions, No use of accessory muscles and clear to auscultation bilaterally AUSCULTATION: clear to auscultation bilaterally Cardio: COMMON NORMALS: regular rate, regular rhythm and No murmurs present (Cardio) RATE: regular rate RHYTHM: regular rhythm GI: COMMON NORMALS: Normal to inspection, nondistended, normoactive bowel sounds present, Soft to palpation, non-tender and no masses PALPATION: Yes Soft to palpation Extremity: COMMON NORMALS: normal to inspection and full ROM Neuro: COMMON NORMALS: patient oriented x3, moves all extremities and no focal motor deficits Psych: COMMON NORMALS: mental status grossly normal, Normal thought process present and cooperative THOUGHT PROCESS: Normal thought process present Skin: COMMON NORMALS: no rashes or lesions noted and no wounds GENERAL SKIN EXAM: no rashes or lesions noted Course Vital Signs: Vital signs: Vital Signs Temperature 98.2 F 04/30/25 03:32 Pulse Rate 80 04/30/25 04:30 Respiratory Rate 15 04/30/25 04:30 Blood Pressure 106/65 04/30/25 04:30 Pulse Oximetry 96 04/30/25 04:30 Oxygen Delivery Me thod Room Air 04/30/25 04:08 MDM - Chest Pain Medical Decision Making Patient presents here with chest pain differential diagnosis include pulm emboli, aortic dissection, ACS. Patient CTA here showed no signs of PE or dissection. Initial troponin was [address] depression on her EKG. I strongly recommended admission for ACS rule out. Patient states she feels much improved and wants to go home and just follow-up with her PCP. I informed her that with her EKG changes and her troponin she could be having an NSTEMI and strongly recommended for her to be admitted. She states that she understands the risk and would like to go home and will sign out AMA. She does have decision-making capacity informed her if she changes her mind or has worsening pain she is to return. She understands and agrees Medical Records I reviewed the patient's medical records. Lab Data 04/30/25 03:46 04/30/25 03:46 Radiology Impressions Chest X-Ray 04/30/25 03:31 IMPRESSION: Negative for acute chest pathology. Chest CTA 04/30/25 03:44 IMPRESSION: Negative for acute chest pathology. Laboratory Results WBC 6.14 10^3/uL (3.29-11.43) 04/30/25 03:46 RBC 4.01 10^6/uL (3.85-5.65) 04/30/25 03:46 Hgb 11.90 g/dL (11.27-16.99) 04/30/25 03:46 Hct 36.6 % (36-47) 04/30/25 03:46 MCV 91.3 fl (85-98) 04/30/25 03:46 MCH 29.7 pg (27-33) 04/30/25 03:46 MCHC 32.5 g/dL (30-55) 04/30/25 03:46 RDW 12.2 % (12.1-15.1) 04/30/25 03:46 Plt Count 132 10^3/cmm (157-399) L 04/30/25 03:46 MPV 11.8 fL (7.4-10.4) H 04/30/25 03:46 Neut % (Auto) 63.9 % 04/30/25 03:46 Lymph % (Auto) 28.0 % 04/30/25 03:46 Long % (Auto) 7.7 % 04/30/25 03:46 Eos % (Auto) 0.0 % 04/30/25 03:46 Baso % (Auto) 0.2 % 04/30/25 03:46 Neut # (Auto) 3.93 10^3/uL (1.8-7.7) 04/30/25 03:46 Lymph # (Auto) 1.7 10^3/uL (0.8-4.8) 04/30/25 03:46 Long # (Auto) 0.5 10^3/uL (0.2-0.9) 04/30/25 03:46 Eos # (Auto) 0.0 10^3/uL (0.0-0.8) 04/30/25 03:46 Baso # (Auto) 0.0 10^3/uL (0.0-0.1) 04/30/25 03:46 Nucleated RBC % (auto) 0 % 04/30/25 03:46 Nucleated RBCs # 0.0 /100WBC 04/30/25 03:46 Sodium 138 mmol/L (136-145) 04/30/25 03:46 Potassium 3.9 mmol/L (3.5-5.1) 04/30/25 03:46 Chloride 101 mmol/L (98-107) 04/30/25 03:46 Carbon Dioxide 24 mmol/L (22-29) 04/30/25 03:46 Anion Gap 16.9 (5-19) 04/30/25 03:46 BUN 23 mg/dL (8-23) 04/30/25 03:46 Creatinine 1.2 mg/dL (0.5-0.9) H 04/30/25 03:46 GFR Calculation Not Reportable 04/30/25 03:46 Glucose 186 mg/dL (65-115) H 04/30/25 03:46 Calculated Osmolality 295 mOsm/kg (285-295) 04/30/25 03:46 Calcium 9.0 mg/dL (8.5-10.5) 04/30/25 03:46 Total Bilirubin 0.3 mg/dL (0.15-1.2) 04/30/25 03:46 AST 23 U/L (0-32) 04/30/25 03:46 ALT 23 U/L (0-33) 04/30/25 03:46 Alkaline Phosphatase 126 U/L (35-105) H 04/30/25 03:46 Troponin T Baseline 25 ng/L (0-10) H 04/30/25 03:46 Total Protein 5.9 g/dL (6.6-8.7) L 04/30/25 03:46 Albumin 4.1 g/dL (3.5-5.2) 04/30/25 03:46 Globulin 1.8 g/dL (1.3-4.6) 04/30/25 03:46 Lipase 54 U/L (13-60) 04/30/25 03:46 All radiology interpretation(s) finalized by discharge EKG Data EKG 1: I personally reviewed and interpreted this EKG as follows: EKG interpretation date: 04/30/25 EKG interpretation time: 03:44 Interpretation: nsr hr 93 no stemi qrs 111 qtch 393 Discharge Plan Discharge Patient Disposition: Left Against Medical Advice Clinical Impression: Chest pain Condition: Stable Prescriptions: No Action potassium 99 mg tablet 99 mg PO DAILY multivitamin [Daily Multi-Vitamin] Tablet 1 tab PO QAM aspirin 81 mg tablet,delayed release (DR/EC) 81 mg PO ONCE ferrous sulfate 27 mg iron tablet 27 mg PO DAILY cetirizine 10 mg tablet 10 mg PO DAILY PRN cholecalciferol (vitamin D3) 75 mcg (3,000 unit) tablet 75 mcg PO DAILY albuterol sulfate [Ventolin HFA] 90 mcg/actuation HFA aerosol inhaler See Rx Instructions .ROUTE .COMPLEX Qty: 18 5RF Dose Instruction: inhale TWO puffs BY MOUTH EVERY 6 HOURS NEEDED FOR SHORTNESS OF BREATH OR wheezing Rx Instructions: inhale TWO puffs BY MOUTH EVERY 6 HOURS NEEDED FOR SHORTNESS OF BREATH OR wheezing metoprolol succinate 100 mg tablet extended release 24 hr See Rx Instructions .ROUTE .COMPLEX Qty: 90 1RF Dose Instruction: TAKE 1 TABLET BY MOUTH DAILY with 50mg TO equal 150mg DAILY Rx Instructions: TAKE 1 TABLET BY MOUTH DAILY with 50mg TO equal 150mg DAILY atorvastatin 80 mg tablet 80 mg PO DAILY Qty: 90 1RF metoprolol succinate 50 mg tablet extended release 24 hr See Rx Instructions .ROUTE .COMPLEX Qty: 90 1RF Dose Instruction: TAKE ONE TABLET BY MOUTH EVERY DAY Rx Instructions: TAKE ONE TABLET BY MOUTH EVERY DAY quetiapine 400 mg tablet See Rx Instructions .ROUTE .COMPLEX Qty: 90 1RF Dose Instruction: TAKE 1 TABLET BY MOUTH AT BEDTIME Rx Instructions: TAKE 1 TABLET BY MOUTH AT BEDTIME venlafaxine 150 mg capsule,extended release 24hr See Rx Instructions .ROUTE .COMPLEX Qty: 90 1RF Dose Instruction: TAKE 1 CAPSULE BY MOUTH EVERY DAY Rx Instructions: TAKE 1 CAPSULE BY MOUTH EVERY DAY Referrals: Saira Charles FNP [Primary Care Provider, Family Practice] - 4-7 days Discharge Diet: Advance as tolerated Discharge Activity: Resume usual activity Patient Instructions: Chest Pain (ED) Print Language: Georgian Coding Level of Care Code ED Credit Negotiator for g Fwd Heart Score HEART Score Components History: Slightly Suspicous EKG: Non-specific Changes Age: 65 or more yrs Risk Factors: 1 or 2 Risk Factors Troponin: Baseline Trop 16-45 ng/L HEART Score RESULT HEART Score: 5
--- OUTSIDE RECORDS SUMMARY | 2025-04-30 03:49 | XMS_ITS | Encounter Summary ---
Author Organization [facility] Address [address] [place] [address] Phone Care Team Providers Care Copra Processor Name Role Phone Ligia Escalera MD Primary Care Provider [phone] Encounter Details Date Type Department Care Team (Late st Contact Info) Description 12/29/2018 Orders Only [facility] [address] [place] [address] Chronic kidney disease, stage 3 (moderate) Social History Tobacco Use Types Packs/Day Years Used Date Smoking Tobacco: Never Assessed Comments Unknown Sex and Gender Information Value Date Recorded Sex Assigned at Not on file Legal Sex Female 11:51 AM EDT Gender Identity Not on file Sexual Orientation Not on file documented as of this encounter Plan of Treatment Not on file documented as of this encounter Visit Diagnoses Diagnosis Chronic kidney disease, stage 3 (moderate) documented in this encounter Care Teams Copra Processor Relationship Specialty Start Date End Date Ligia Escalera MD [address] [place] [address] PCP - General Family Medicine 12/29/18 documented as of this encounter
--- OUTSIDE RECORDS SUMMARY | 2025-04-30 03:49 | XMS_ITS | Clinical Summary ---
Author Organization [facility] Address [address] [place] [id number] Care Team Providers Care Foiling Machine Adjuster Name Role Phone Ligia Escalera MD Primary Care Provider [phone] Allergies Active Allergy Reactions Criticality Noted Date Comments Erythromycin Rash Low 05/22/2020 Medications fluticasone (FLONASE) 50 MCG/ACT nasal spray Administer 2 sprays into each nostril 1 (one) time each day if needed Active atorvastatin (LIPITOR) 40 MG tablet Take 40 mg by mouth 1 (one) time each day Active metoprolol succinate XL (TOPROL-XL) 50 MG 24 hr tablet 50 mg Take 1 tablet by mouth daily with 100 mg tablet to equal 150 mg Active venlafaxine XR (EFFEXOR-XR) 150 MG 24 hr capsule Take 150 mg by mouth 1 (one) time each day Do not crush or chew. Active QUEtiapine (SEROquel) 400 MG tablet Take 400 mg by mouth every night Active albuterol HFA (PROVENTIL HFA;VENTOLIN HFA) 108 (90 Base) MCG/ACT inhaler Inhale 2 puffs every 4 (four) hours if needed Active aspirin 81 MG tablet Take 81 mg by mouth 1 (one) time each day Active metoprolol succinate XL (TOPROL-XL) 100 MG 24 hr tablet 100 mg Take 1 tablet by mouth daily with 50 mg daily to equal 150 mg Active fenofibrate (TRICOR) 145 MG tablet TAKE ONE TABLET BY MOUTH EVERY DAY 0 Active Multiple Vitamin (multivitamin) tablet Take 1 tablet by mouth 1 (one) time each day Active ferrous sulfate 325 (65 Fe) MG EC tablet 325 mg Take 1/2 tablet by mouth daily Active Cholecalciferol (Vitamin D) 50 MCG (1999 UT) capsule Take by mouth 1 (one) time each day Active diclofenac (Voltaren) 1 % gel Apply topically 4 times a day Active Active Problems Problem Noted Date Diagnosed Date Stage 3b chronic kidney disease 05/22/2020 Overview (07/15/2020): Update for Diagnosis Load Essential (primary) hypertension 05/22/2020 Family History Medical History Relation Comments Cancer Father Diabetes Father Gout Father Heart disease Father Hypertension Father Cancer Mother Heart disease Mother Hypertension Mother Stroke Mother Relation Status Comments Father Mother Social History Tobacco Use Types Packs/Day Years Used Date Smoking Tobacco: Never Smokeless Tobacco: Never Alcohol Use Standard Drinks/Week Comments Never 0 (1 standard drink = 0.6 oz pur e alcohol) AUDIT-C Answer Date Recorded Q1: How often do you have a drink containing alc ohol? Never 05/22/2020 Average Number of Drinks Not on file 020 Frequency of Binge Drinking Not on file 05/12 Comments Unknown Sex and Gender Information Value Date Recorded Sex Assigned at Not on file Legal Sex Female 11:51 AM EDT Gender Identity Not on file Sexual Orientation Not on file Last Filed Vital Signs Vital Sign Reading Time Taken Comments Blood Pressure 136/78 05/22/2020 2:01 PM CHIEF RESOURCE OFFICER Pulse 60 05/22/2020 2:01 PM CHIEF RESOURCE OFFICER Temperature 36.4 C (97.6 F) 05/22/2020 2:01 PM CHIEF RESOURCE OFFICER Respiratory Rate - - Oxygen Saturation - - Inhaled Oxygen Concentration - - Weight 101 kg (221 lb 12.8 oz) 05/22/2020 2:01 P M CHIEF RESOURCE OFFICER Height 166.4 cm (5' 5.5 ) 05/22/2020 2:01 PM CHIEF RESOURCE OFFICER Body Mass Index 36.35 05/22/2020 2:01 PM CHIEF RESOURCE OFFICER Plan of Treatment Health Maintenance Due Date Last Done Comments Breast Cancer Screening 1950 Pneumococcal Vaccine: 50+ Ye ars (1 of 2 - PCV) 1968 Colorectal Cancer Screening: Annual FOBT 1998 Colorectal Cancer Screening: Colonoscopy 1998 Colorectal Cancer Screening: Sigmoidoscopy 1998 Influenza Vaccine (#1) 2025 Hepatitis B Vaccine Aged Out No longe r eligible based on patient's age to complete this topic Insurance Medicare Medicaid [place] ([id number]) Care Teams Foiling Machine Adjuster Relationship Specialty Start Date End Date Ligia Escalera MD [address] [id number] PCP - General Family Medicine 12/29/18
[2025-04-30 04:05] LABS: Hematocrit 36.6 % (36-47); Hemoglobin 11.90 g/dL (11.27-16.99); Mean Corpuscular HGB Conc 32.5 g/dL (30-55); Mean Corpuscular Hemoglobin 29.7 pg (27-33); Mean Corpuscular Volume 91.3 fl (85-98); Nucleated Red Blood Cells % 0 %; Platelet Count 132 10^3/cmm (157-399); Red Blood Count 4.01 10^6/uL (3.85-5.65); White Blood Count 6.14 10^3/uL (3.29-11.43)
[2025-04-30 04:08] VITALS: BP 99/68; PULSE 96; RESP 18; O2SAT 97
[2025-04-30] MEDS: iohexol 350 mg/mL 500 mL Btl (per mL) IV (04:13)
[2025-04-30 04:20] LABS: Troponin(5th) Baseline 25 ng/L (0-10)
[2025-04-30 04:21] LABS: Alanine Aminotransferase 23 U/L (0-33); Albumin Level 4.1 g/dL (3.5-5.2); Alkaline Phosphatase 126 U/L (35-105); Aspartate Amino Transferase 23 U/L (0-32); Blood Urea Nitrogen 23 mg/dL (8-23); Calcium 9.0 mg/dL (8.5-10.5); Carbon Dioxide 24 mmol/L (22-29); Chloride 101 mmol/L (98-107); Creatinine Clr Calc Pharmacy 46.9888; Globulin 1.8 g/dL (1.3-4.6); Glucose 186 mg/dL (65-115); Lipase 54 U/L (13-60); Osmolality Calculated 295 mOsm/kg (285-295); Sodium 138 mmol/L (136-145); Total Protein 5.9 g/dL (6.6-8.7)
[2025-04-30 04:30] VITALS: BP 106/65; PULSE 80; RESP 15; O2SAT 96
[2025-04-30 04:34] LABS: Anion Gap 16.9 (5-19); Potassium 3.9 mmol/L (3.5-5.1)
--- NOTE | 2025-04-30 05:32 | ECG_ITS ---
[email or web address] Test Date: 2025-04-30 Pat Name: Beckie Shaw Department: Room: Gender: Female Conveyor Tender: : 1950 Requested By: Brian Luna Order Number: [id number] Cely MD: Brandi Brenner M.D. Measurements Intervals [place] Rate: 93 P: 42 NC: 196 QRS: -37 QRSD: 111 T: 106 QT: 342 QTc: 426 Interpretive Statements SINUS RHYTHM LEFT AXIS DEVIATION [QRS AXIS < -30] SEPTAL MYOCARDIAL INFARCTION , PROBABLY OLD [40+ ms Q WAVE IN V1/V2] MODERATE T-WAVE ABNORMALITY, CONSIDER LATERAL ISCHEMIA [-0.1+ mV T-WAVE IN I/aVL/V5/V6] Compared to ECG 05/25/2023 01:57:52 Myocardial infarct finding now present T-wave abnormality now present Possible ischemia now present Left ventricular hypertrophy no longer present ST (T wave) deviation no longer present Electronically Signed On 05-01-2025 19:46:02 CDT by Brandi Brenner M.D. [email or web address]
== END 2025-04-30 05:22 | disposition left against medical advice (07) ==
PROVIDERS: Emergency Provider Emergency Medicine; PCP Nurse Practitioner Family
DX: R07.9 Chest pain, unspecified (principal); Z79.82 Long term (current) use of aspirin; J44.9 Chronic obstructive pulmonary disease, unspecified; E78.2 Mixed hyperlipidemia; E11.22 Type 2 diabetes mellitus with diabetic chronic kidney disease; I12.9 Hypertensive chronic kidney disease with stage 1 through stage 4 chronic kidney disease, or unspecified chronic kidney disease; N18.30 Chronic kidney disease, stage 3 unspecified
CPT/HCPCS: 71045; 71275; 80053; 83690; 84484; 85025; 93005; 99285